=== PATIENT | female | born 1955 | race Caucasian/White ===

== ENCOUNTER → 2016-12-18 | Outpatient (CLI) | payer BC ==
--- NOTE | ~2016-12-18 | MY29 ---
[facility] A Service of [facility] RADIOLOGY TEXT RESULTS PATIENT: ROBERT DE LEÓN LOCATION: [facility] : 59 UNIT #: [id number] AGE: [address]: CORY IZQUIERDO MD SEX: F ORDER DR: [id number] [facility] [address] [place], [place] [address] [id number] MR#: [id number] Acc #: [id number] NAME: ORBERT DE LEÓN : 1955 SEX: F STUDY DATE/TIME: 12/18/2016 13:51 UNIT: [facility] ROOM: STUDY DESCRIPTION: MY LUKE SCREENING W/ CAD BILAT Attending Physician: Cory Izquierdo M.D. Referring Physician: Cory Izquierdo M.D. Ordering Physician: Cory Izquierdo M.D. Primary Care Physician: Cory Izquierdo M.D. MEDICAL IMAGING REPORT This report is preliminary unless electronic signature is present EXAM Digital screening mammogram, , [facility]. HISTORY 61-year-old woman positive family history, 2 sisters, 1 age 49, and 1 age 69. Annual screen. COMPARISON Mammograms date to 12/24/2008 with followup 10/06/2014, 12/09/2015. TECHNIQUE Digital imaging of each breast was completed utilizing screening protocol. Review includes FDA-approved CAD device. FINDINGS Breast parenchyma is partially fatty replaced and heterogeneous. I see no interval occurring breast mass and no interval occurring suspicious microcalcifications. There is no focal architectural distortion. Mild parenchymal dominance upper central right breast location is stable. Parenchymal dominance inferior left breast is stable. IMPRESSION Benign mammogram. Annual screening recommended. Patients over the age of 40 are entered into a reminder system with target due date for the next mammogram. A result letter will also be sent to the patient. BIRADS: 2 Benign finding. Dictated by... [facility] A Service of [facility] & [facility] RADIOLOGY TEXT RESULTS PATIENT: ROBERT DE LEÓN LOCATION: [facility] : 59 UNIT #: [id number] AGE: [address]: CORY IZQUIERDO MD SEX: F ORDER DR: Kei Cooper M.D. THIS IS AN ELECTRONICALLY VERIFIED REPORT Kei Cooper M.D. at 12/19/2016 8:08 AM SHANTEL/melody TD: 12/18/2016 21:10 JOB #: [id number] MEDICAL IMAGING REPORT Page 1 of 1 COPY
== END | disposition home or self-care (01) ==
LOC: CWCC 13:00
DX: Z12.31 Encounter for screening mammogram for malignant neoplasm of breast (principal); Z80.3 Family history of malignant neoplasm of breast
CPT/HCPCS: G0202